=== PATIENT | male | born 1950 | race Caucasian/White ===

== ENCOUNTER 2019-09-29 14:35 | Outpatient (CLI) | payer MEDICARE, OTHER ==
[~2019-09-29 14:35] MED LIST: Iopamidol-370 76% 500 ML 1 ML ONE
--- NOTE | 2019-09-29 15:51 | CT ---
CT ANGIOGRAM OF THE CHEST: HISTORY: Status post thoracic aortic dissection repair with graft and aVR. COMPARISON: 05/11/2017. TECHNIQUE: CT angiogram of the chest is performed in the axial plane. Three-dimensional reformatted images are s ubmitted for interpretation. FINDINGS: Mediastinum: No mass, lymphadenopathy or hematoma. Heart: Normal size. No significant pericardial fluid. There is evidence of previous CABG. Extensive coronary artery disease. Aorta: Interval surgical repair of a previously noted ascending thoracic aortic aneurysm. Currently, the aorta measures 2.9 x 3.6 cm. Redemonstration of a type B dissection, starting just beyond the origin of the left subclavian artery. The true lumen is opacified with contrast. The false lumen has a small component that does not opacify with contrast, near the aortic knob. Remainder of the false lumen does opacify with contrast. There is no evidence of aneurysmal dilatation. The celiac artery an d superior mesenteric artery are supplied by the true lumen. Upper solid abdominal viscera: Incompletely evaluated hepatic cyst. Trachea and central bronchi: Patent. Pleural spaces: No effusion. Lung parenchyma: No masses or consolidation. There are dependent atelectatic changes. Pneumothorax: None. Osseous structures: No lytic or blastic lesions. IMPRESSION: 1. 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 2. No evidence of aneurysmal dilatation. 3. Previously noted dilatation at the level of the ascending thoracic aorta has been surgically repai red. No evidence of recurrent aneurysm. Transcribed Date/Time: 09/29/2019 3:58 PM
== END 2019-09-29 14:36 | disposition home or self-care (01) ==
LOC: BICCT 14:35
PROVIDERS: ATTEND Internal Medicine Cardiovascular Disease
DX: I71.9 Aortic aneurysm of unspecified site, without rupture (principal); I71.01 Dissection of thoracic aorta; Z98.890 Other specified postprocedural states
CPT/HCPCS: 71275; Q9967